=== PATIENT | male | born 1955 | race African-American/Black ===

== ENCOUNTER 2020-07-12 18:56 | Inpatient (IN) | payer MEDICARE, OTHER ==
[~2020-07-12] VITALS: Ht 180.3 cm; Wt 53.5 kg
--- NOTE | 2020-07-12 19:10 | NUR ---
PT BIBPA C/O OF WEAKNESS AND CONTINUED WEIGHTLOSS. PT AAOX1 BREATHING EVENLY AND UNLABORED. PT SKIN WARM, DRY AND INTACT. UPON ASSESSMENT PT HAS GTUBE. PT ATTACHED TO MONITOR AND POX. PT BASLINE O2 92%. GIVEN BLANKET AND CALL LIGHT WITHIN REACH
[2020-07-12] MEDS ORDERED: IV NS 0.9% 1,000 ML BAG IV ONE (20:00)
[2020-07-12 20:07] LABS: BASOPHILS % (AUTO) 0.5 % (0.0-2.0); EOSINOPHILS % (AUTO) 1.8 % (0.0-6.0); HEMATOCRIT 35 % (39-51); HEMOGLOBIN 10.7 g/dL (13.5-17.5); LYMPHOCYTES # (AUTO) 1.1 /CMM (0.8-4.8); LYMPHOCYTES % (AUTO) 25.1 % (20.0-44.0); MEAN CORPUSCULAR HGB CONC 30 g/dl (31.0-36.0); MEAN CORPUSCULAR VOLUME 87 fL (80-96); MONOCYTES # (AUTO) 0.4 /CMM (0.1-1.30); MONOCYTES % (AUTO) 8.2 % (2.0-12.0); NEUTROPHILS # (AUTO) 2.8 /CMM (1.8-8.9); NEUTROPHILS % (AUTO) 64.4 % (43.0-81.0); PLATELET COUNT (AUTO) 230 /CMM (150-450); RED BLOOD CELL COUNT(AUTO) 4.06 MIL/uL (4.5-6.0); WHITE BLOOD COUNT (AUTO) 4.3 K/uL (4.3-11.0)
--- NOTE | 2020-07-12 20:15 | NUR ---
COVID SWAB SENT TO LAB
--- NOTE | 2020-07-12 20:15 | NUR ---
URINE OBTAINED AND SENT TO LAB
[2020-07-12] MEDS ORDERED: LIDOCAINE 2% JEL UROJET 10 ML MM ONE (20:17)
[2020-07-12 20:33] LABS: CARBON DIOXIDE 30 mmol/L (21-32); CHLORIDE 110 mmol/L (98-107); CREATININE 0.8 mg/dL (0.6-1.3); GLUCOSE 130 mg/dL (74-106); POTASSIUM 3.6 mmol/L (3.5-5.1); SODIUM SERUM 149 mmol/L (136-145); UREA NITROGEN, BLOOD 39 mg/dL (7-18)
[2020-07-12 20:38] LABS: ALANINE AMINOTRANSFERASE 42 U/L (12-78); ALBUMIN 2.6 g/dL (3.4-5.0); ALKALINE PHOSPHATASE 110 U/L (46-116); ASPARTATE AMINOTRANSFERASE 31 U/L (15-37); BILIRUBIN,DIRECT 0.1 mg/dL (0.0-0.2); BILIRUBIN,TOTAL 0.2 mg/dL (0.2-1.0); LIPASE 79 U/L (73-393); TOTAL PROTEIN, SERUM 7.4 g/dL (6.4-8.2)
[2020-07-12 20:50] LABS: BILIRUBIN,URINE Negative (NEGATIVE); COLOR,URINE YELLOW (YELLOW); LEUKOCYTE ESTERASE ,URINE Small (NEGATIVE); NITRITE, URINE Positive (NEGATIVE); PROTEIN,URINE Trace mg/dl (NEGATIVE); UGLUCOSE Negative (NEGATIVE)
[2020-07-12 21:01] LABS: BACTERIA,URINE 3+ /HPF (None Seen); RBC,URINE NONE SEEN /HPF (0-2); SQUAMOUS EPITHELIAL CELL,UR Few /HPF (None Seen); WBC,URINE 21-50 /HPF (0-3)
[2020-07-12] MEDS ORDERED: CEFEPIME 1 GM VIAL ONE (21:18)
--- NOTE | 2020-07-12 21:20 | NUR ---
EPIC COUNCILOR PAGED FOR PANEL
[2020-07-12] MEDS ORDERED: CEFEPIME 1 GM in IV D5W 50 ML IV ONE (21:30)
--- NOTE | 2020-07-12 21:36 | NUR ---
covid swab sent to lab
--- NOTE | 2020-07-12 22:05 | NUR ---
M/S 109
--- NOTE | 2020-07-12 22:14 | NUR ---
GAVE REPORT TO KANNAN VAUGHN FOR JENNY
[2020-07-12] MEDS ORDERED: LOSA50TA39 GT (22:20)
[2020-07-12 23:00] VITALS: BP 139/63
[2020-07-12] MEDS ORDERED: ACETAMINOPHEN 325 MG TABLET PO PRN (23:00)
[2020-07-12] MEDS ORDERED: ONDANSETRON HCL/PF 4 MG/2 ML VIAL IVP PRN (23:00)
[2020-07-12] MEDS ORDERED: Z GUARD REMEDY 2 OZ OINT TP PRN (23:00)
[2020-07-12] MEDS ORDERED: MAGNESIUM HYDROXIDE 30 ML UDC PO PRN (23:00)
[2020-07-12] MEDS ORDERED: MAG HYDROX/AL HYDROX/SIMETH 30 ML UDC PO PRN (23:00)
[2020-07-12] MEDS ORDERED: HYDROCODONE/APAP 5/325MG TABLET PO PRN (23:00)
[2020-07-12] MEDS ORDERED: ZOLPIDEM TARTRATE 5 MG TABLET PO PRN (23:00)
--- NOTE | 2020-07-12 23:00 | NUR ---
RN NOTE PT ARRIVED TO THE UNIT WITH LAURO, PT IS A/O X1, ON RA SATING 94%. PT HAS UNLABORED BREATHING, SAFETY MEASURES IN PLACE
[2020-07-12] MEDS: ENOXAPARIN SODIUM 40 MG/0.4 ML DISP.SYRIN SQ SCH (23:41)
[2020-07-12] MEDS: IV D5/0.45 NACL 1,000 ML IV PRN (23:43)
--- NOTE | 2020-07-13 02:10 | NUR ---
0210 SUMMONED BY KANNAN VAUGHN TO ROOM DUE TO PATIENT'S TRIVEDI CATH NOTED WITH BLEEDING AND SCANT URINE OUTPUT. ASSESSED PATIENT AND NOTED TO HAVE DISTENDED BLADDER. BLADDER SCAN DONE AND NOTED WITH 350-500ML OF POST VOID RESIDUAL. DR KOHLI WAS MADE AWARE BY PRIMARY RN WITH ORDER TO INSERT TRIVEDI PROPERLY AND IRRIGATE. ORDER NOTED AND CARRIED OUT. TRIVEDI CATHETER FR 16/10ML INSERTED USING ASEPTIC TECHNIQUE WITH NO RESISTANCE MET. STILL NOTED WITH BLOODY URINE IN SMALL AMOUNT. IRRIGATED ORDERED AND NOTED WITH SOME CLOTS. PATIENT TOLERATED PROCEDURE WELL. WILL CONTINUE TO MONITOR.
[2020-07-13 04:00] VITALS: BP 154/97
--- NOTE | 2020-07-13 04:00 | NUR ---
INFORMED DR KAMILLA TRIVEDI INSERTED PROPERLY AND IRRIGATED, STILL NO URINE OUTPUT NOTED. WAITING FOR HIS CALL BACK.
[2020-07-13 05:52] LABS: BASOPHILS # (AUTO) 0.1 /CMM (0.0-0.2); BASOPHILS % (AUTO) 0.7 % (0.0-2.0); EOSINOPHILS % (AUTO) 0.6 % (0.0-6.0); HEMATOCRIT 37 % (39-51); HEMOGLOBIN 11.4 g/dL (13.5-17.5); LYMPHOCYTES # (AUTO) 1.1 /CMM (0.8-4.8); LYMPHOCYTES % (AUTO) 11.9 % (20.0-44.0); MEAN CORPUSCULAR HGB CONC 31 g/dl (31.0-36.0); MEAN CORPUSCULAR VOLUME 85 fL (80-96); MONOCYTES # (AUTO) 0.4 /CMM (0.1-1.30); NEUTROPHILS # (AUTO) 7.3 /CMM (1.8-8.9); NEUTROPHILS % (AUTO) 82.8 % (43.0-81.0); PLATELET COUNT (AUTO) 278 /CMM (150-450); RED BLOOD CELL COUNT(AUTO) 4.37 MIL/uL (4.5-6.0); WHITE BLOOD COUNT (AUTO) 8.8 K/uL (4.3-11.0)
[2020-07-13 06:09] LABS: CALCIUM, SERUM 10.1 mg/dL (8.5-10.1); CREATININE 0.9 mg/dL (0.6-1.3); PHOSPHORUS 2.8 mg/dL (2.5-4.9); POTASSIUM 3.2 mmol/L (3.5-5.1)
[2020-07-13 06:19] LABS: THYROID STIMULATING HORMONE 5.717 uIU/mL (0.358-3.74)
--- NOTE | 2020-07-13 07:19 | NUR ---
RN NOTE REPORT GIVEN TO ONCOMING SHIFT FOR JENNY.
--- NOTE | 2020-07-13 07:25 | NUR ---
RN OPENING NOTES RECEIVED PT IN BED. A/O X1. ON ROOM AIR SATURATING @100%. NO SOB OR ANY RESPIRATORY DISTRESS NOTED. GT CLAMPED. NPO STATUS. IV ACCESS AT L HAND #20 INTACT AND PATENT. 1/2 NS RUNNING @75 ML/HR INFUSING WELL. SAFETY MEASURES IN PLACE. CALL LIGHT WITHIN REACH. BED LOCKED AND AT LOWEST POSITION WITH SIDE RAILS UP X3. WILL CONTINUE TO MONITOR.
[2020-07-13] MEDS: PANTOPRAZOLE 40 MG TABLET.DR PO SCH (07:30)
[2020-07-13 08:00] VITALS: BP 151/92
[2020-07-13] MEDS ORDERED: CARV3.12 GT (08:06)
[2020-07-13] MEDS ORDERED: BENZ1TAB7 GT (08:06)
[2020-07-13] MEDS ORDERED: MELA5TAB GT (08:06)
[2020-07-13] MEDS ORDERED: LEVO50TA8 GT (08:06)
[2020-07-13] MEDS ORDERED: CLON0.2T GT (08:06)
[2020-07-13] MEDS ORDERED: INSU100V10 SQ (08:06)
[2020-07-13] MEDS ORDERED: MAGN400O6 GT (08:06)
[2020-07-13] MEDS ORDERED: MULT-439 GT (08:06)
[2020-07-13] MEDS ORDERED: ASPI-1169 GT (08:06)
[2020-07-13] MEDS ORDERED: ATOR10TA GT (08:06)
[2020-07-13] MEDS ORDERED: CLOP75TA15 GT (08:06)
[2020-07-13] MEDS ORDERED: VALP250S4 GT (08:06)
[2020-07-13] MEDS ORDERED: OMEP20TA5 GT (08:06)
[2020-07-13] MEDS ORDERED: LEVA15HF4 IH (08:06)
[2020-07-13] MEDS ORDERED: ACET325T53 GT (08:06)
[2020-07-13] MEDS ORDERED: AMLO10TA4 GT (08:06)
[2020-07-13] MEDS ORDERED: CHOL400C8 GT (08:06)
[2020-07-13] MEDS: CEFEPIME 1 GM in IV D5W 50 ML IV SCH ×2 (09:41→20:32)
[2020-07-13] MEDS: POTASSIUM CL. PREMIX PERIPHER. 50 ML IV SCH ×4 (12:21→15:32)
[2020-07-13 16:00] VITALS: BP 132/95
[2020-07-13] MEDS: IV D5/0.45 NACL 1,000 ML IV PRN (17:24)
--- NOTE | 2020-07-13 18:40 | NUR ---
RN CLOSING NOTES NO SIGNIFICANT CHANGES THROUGHOUT SHIFT. VS STABLE. NOT IN DISTRESS. NO PAIN REPORTED AT THIS TIME. SAFETY MEASURES IN PLACE. CALL LIGHT WITHIN REACH. BED LOCKED AND AT LOWEST POSITION WITH SIDE RAILS UP X3. WILL ENDORSE TO NIGHT NURSE FOR JENNY.
--- NOTE | 2020-07-13 19:15 | NUR ---
ASSUMED CARE OF PATIENT. PATIENT IS ALERT IN BED. UNABLE TO DETERMINE ORIENTATION DUE TO PATIENT NON-VERBAL. CURRENTLY ON ROOM AIR AND DOES NOT APPEAR TO BE IN ANY DISTRESS OR DISCOMFORT AT THIS TIME. ACCESS IN LEFT HAND IS PATENT AND INFUSING D5 1/2 NS @ 75 ML/HR. SAFETY MEASURES IN PLACE. BED IN LOW POSITION AND LOCKED [facility] SIDE RAILS UP X3. CALL LIGHT WITHIN REACH. WILL CONTINUE TO MONITOR.
[2020-07-13 20:00] VITALS: BP 128/81
[2020-07-13] MEDS: ENOXAPARIN SODIUM 40 MG/0.4 ML DISP.SYRIN SQ SCH (22:15)
--- NOTE | 2020-07-13 22:16 | NUR ---
UROLOGY PREVIOUSLY AT BEDSIDE. PER MD, TRIVEDI BALLOON WAS NOT FULLY INSERTED SO BALLOON WAS DEFLATED AND TRIVEDI PUSHED IN FURTHER. ABLE TO GET 550 ML OF DK BROWN URINE OUT AFTERWARDS. PATIENT NOTED TO BE PULLING ON CATHETER WHEN RN ARRIVED TO BEDSIDE AND SMALL AMOUNT OF BLEEDING NOTED FROM PENIS. WILL HOLD LOVENOX FOR THE NIGHT.
[2020-07-13] MEDS: LOSARTAN POTASSIUM 50 MG TABLET GT SCH (22:27)
--- NOTE | 2020-07-13 23:26 | NUR ---
COVID RESULT NEGATIVE
--- NOTE | 2020-07-14 00:03 | NUR ---
NOTICED PATIENT PULLING AT CATHETER. PATIENT'S HAND REMOVED FROM CATHETER AND A WASH CLOTH WAS PLACED IN HIS HAND AT THIS TIME. WILL CONTINUE TO MONITOR.
[2020-07-14 04:00] VITALS: BP 139/90
[2020-07-14 06:08] LABS: BASOPHILS % (AUTO) 0.5 % (0.0-2.0); EOSINOPHILS % (AUTO) 0.4 % (0.0-6.0); HEMATOCRIT 33 % (39-51); HEMOGLOBIN 10.3 g/dL (13.5-17.5); LYMPHOCYTES # (AUTO) 0.7 /CMM (0.8-4.8); LYMPHOCYTES % (AUTO) 12.2 % (20.0-44.0); MEAN CORPUSCULAR HGB CONC 31 g/dl (31.0-36.0); MEAN CORPUSCULAR VOLUME 84 fL (80-96); MONOCYTES # (AUTO) 0.4 /CMM (0.1-1.30); MONOCYTES % (AUTO) 5.9 % (2.0-12.0); NEUTROPHILS # (AUTO) 4.9 /CMM (1.8-8.9); PLATELET COUNT (AUTO) 238 /CMM (150-450); RED BLOOD CELL COUNT(AUTO) 3.89 MIL/uL (4.5-6.0)
[2020-07-14 06:17] LABS: CALCIUM, SERUM 9.8 mg/dL (8.5-10.1); CREATININE 1.1 mg/dL (0.6-1.3); PHOSPHORUS 3.3 mg/dL (2.5-4.9); POTASSIUM 3.3 mmol/L (3.5-5.1)
[2020-07-14] MEDS: IV D5/0.45 NACL 1,000 ML IV PRN ×2 (06:45→21:39)
--- NOTE | 2020-07-14 07:08 | NUR ---
No significant changes overnight. Patient not in distress. Small amount of blood noted from penis overnight. Patient no longer pulling catheter with cloth in his hand. Urine now yellow with sediment. Safety measures remain in place. Report given to KANNAN Archer and labs reviewed.
--- NOTE | 2020-07-14 07:25 | NUR ---
RN OPENING NOTES RECEIVED PT IN BED. AWAKE, NON VERBAL. ON ROOM AIR SATURATING @95%. NO SOB OR ANY RESPIRATORY DISTRESS NOTED. GT CLAMPED. NPO STATUS. IV ACCESS AT L HAND #20 INTACT AND PATENT. D5 1/2 NS RUNNING @75 ML/HR INFUSING WELL. TRIVEDI CATH IN PLACE, DRAINING URINE VIA GRAVITY. SAFETY MEASURES IN PLACE. CALL LIGHT WITHIN REACH. BED LOCKED AND AT LOWEST POSITION WITH SIDE RAILS UP X3. WILL CONTINUE TO MONITOR.
[2020-07-14] MEDS: CEFEPIME 1 GM in IV D5W 50 ML IV SCH ×2 (09:03→21:39)
[2020-07-14] MEDS: PANTOPRAZOLE 40 MG TABLET.DR PO SCH (09:03)
[2020-07-14] MEDS: POTASSIUM CL. PREMIX PERIPHER. 50 ML IV SCH ×2 (11:49→12:49)
[2020-07-14 12:00] VITALS: BP 133/89
[2020-07-14] MEDS ORDERED: TWOCAL HN 1,000 ML LIQUID GT PRN (18:00)
--- NOTE | 2020-07-14 19:42 | NUR ---
RN OPENING NOTES RECEIVED PT IN BED. AWAKE, NON VERBAL. ON ROOM AIR TOLERATING WELL. NO SOB OR ANY RESPIRATORY DISTRESS NOTED AT THIS TIME. SATURATING IS 94%. IV SITE L HAND #20 INTACT AND PATENT WITH IVF D5 1/2 NS RUNNING @75 ML/HR INFUSING WELL. PT HAS GTUBE, TWO PILLO @50CC/HR RUNNING. GT AUSCULTATED FOR PLACEMENT, RESIDUAL OF 0 NOTED. PT HAS TRIVEDI CATH IN PLACE, DRAINING URINE VIA GRAVITY. SAFETY MEASURES IN PLACE.HEAD OF BED ELEVATED. SIDE RAILS UP X3, BED IS LOCKED IN LOWEST POSITION WITH BED ALARM ON. WILL CONT TO CLOSELY MONITOR.
[2020-07-14 20:00] VITALS: BP 141/74
[2020-07-14] MEDS: LOSARTAN POTASSIUM 50 MG TABLET GT SCH (21:40)
[2020-07-14] MEDS: ENOXAPARIN SODIUM 40 MG/0.4 ML DISP.SYRIN SQ SCH (23:54)
--- NOTE | 2020-07-15 03:22 | NUR ---
PT IS CURRENTLY RESTING, AT THIS TIME. CLOSELY MONITORING PT HAS HX OF PULLING AT LINES/EQUIPMENT.
[2020-07-15 04:00] VITALS: BP 148/92
--- NOTE | 2020-07-15 05:34 | NUR ---
PT HAD BM X1, SOFT FORMED BROWN
[2020-07-15 06:27] LABS: BASOPHILS % (AUTO) 0.3 % (0.0-2.0); EOSINOPHILS % (AUTO) 0.8 % (0.0-6.0); HEMATOCRIT 29 % (39-51); HEMOGLOBIN 9.1 g/dL (13.5-17.5); LYMPHOCYTES # (AUTO) 0.9 /CMM (0.8-4.8); LYMPHOCYTES % (AUTO) 19.8 % (20.0-44.0); MEAN CORPUSCULAR HGB CONC 32 g/dl (31.0-36.0); MEAN CORPUSCULAR VOLUME 85 fL (80-96); MONOCYTES # (AUTO) 0.4 /CMM (0.1-1.30); MONOCYTES % (AUTO) 8.9 % (2.0-12.0); NEUTROPHILS # (AUTO) 3.3 /CMM (1.8-8.9); NEUTROPHILS % (AUTO) 70.2 % (43.0-81.0); PLATELET COUNT (AUTO) 210 /CMM (150-450); RED BLOOD CELL COUNT(AUTO) 3.39 MIL/uL (4.5-6.0); WHITE BLOOD COUNT (AUTO) 4.7 K/uL (4.3-11.0)
[2020-07-15 06:47] LABS: CALCIUM, SERUM 9.3 mg/dL (8.5-10.1); CREATININE 0.9 mg/dL (0.6-1.3); POTASSIUM 3.5 mmol/L (3.5-5.1)
--- NOTE | 2020-07-15 06:59 | NUR ---
RN CLOSING NOTES PT REMAINS IN BED, DID NOT SLEEP WELL THROUGHOUT NIGHT. ONLY INTERMITTENTLY. NO SIGNIFICANT CHANGES IN PT CONDITION. STILL ON ROOM AIR, TOLERATING WELL NO DISTRESS NOTED. BED BATH DONE, NO S/S OF PAIN. NEEDS ATTENDED. STILL REMAINS WITH GT FEEDING AND IVF. NO S/S OF INFILTRATION NOTED. PT OCCASIONALLY NOTED TO BE RESTLESS AND FIDGETING WITH DIAPER/CHUCKS. EDUCATED PT ON IMPORTANCE OF TRIVEDI CATH AND INSTRUCTED TO LEAVE IT ALONE. PT DENIES PAIN WHEN ASKED REGARDING TRIVEDI SPECIFICALLY. PT AFEBRILE. SAFETY MEASURES IN PLACE. HOB ELEVATED. BED LOCKED IN LOWEST POSITION WITH BED ALARM ON. CALL LIGHT WITHIN REACH. SIDE RAILS X2. WILL ENDORSE TO AM NURSE FOR CONTINUATION OF CARE.
[2020-07-15 08:00] VITALS: BP 148/83
[2020-07-15] MEDS: PANTOPRAZOLE 40 MG TABLET.DR PO SCH (08:02)
[2020-07-15] MEDS: CEFEPIME 1 GM in IV D5W 50 ML IV SCH ×2 (08:02→21:38)
--- NOTE | 2020-07-15 09:00 | NUR ---
RN NOTE RECEIVED PT IN BED, AWAKE, NON VERBAL. ROOM AIR WITH NO SOB NOR RESPIRATORY DISTRESS NOTED. AT THIS TIME. 20G TO LEFT HAND INTACT AND PATENT WITH D5 1/2NS @ 75ML/HR. GTUBE INTACT AND PATENT WITH NO RESIDUAL, PLACEMENT CHECKED, 2CAL @ 50ML/HR AND TOLERAING WELL. TRIVEDI CATH INTACT TO BEDSIDE DRAINAGE WITH CLEAR YELLOW URINE NOTED. ENDORSING NURSE INITIATED SOFT WRIST RESTRAINTS R/T PATIENT PULLING LINES. SAFETY MEASURES IN PLACE, HOB ELEVATED, SIDE RAILS UP X3, BED LOCKED IN LOWEST POSITION AND BED ALARM ON. WILL CONT TO MONITOR.
--- NOTE | 2020-07-15 09:59 | NUR ---
RN NOTE [employer] ARCHITECT REACHED OUT TO CONSERVATORS LISTED IN CHART [phone] & [phone] WITH CONTRAST. NO ANSWER-VOICEMAIL LEFT TO RETURN CALL AT [facility]LIEST.
--- NOTE | 2020-07-15 10:15 | NUR ---
RN NOTE 1007 ABLE TO OBTAIN CONSENT FROM DANIELLA SCHOFIELDAZ CONSERVATOR. CONSENT PLACE ON CHART.
[2020-07-15] MEDS ORDERED: IV NS 0.9% 250 ML IV ONE (12:12)
[2020-07-15] MEDS ORDERED: IOHEXOL-300 100 ML VIAL IV ONE (12:12)
[2020-07-15] MEDS ORDERED: CT SWABBABLE VALVE TRANS SET 1 EA INFUS.SET MC ONE (12:12)
--- NOTE | 2020-07-15 12:51 | NUR ---
RN NOTE PATTIE JACKSON NP MADE AWARE OF CT UNABLE TO BE DONE R/T PATIENT FIDGETY AND PULLING AT LINES. ORDERS OBTAINED FOR ATIVAN PRN AND RESTRAINTS. WILL NOTIFY CT.
[2020-07-15] MEDS ORDERED: LORAZEPAM INJ 2 MG/ML VIAL IV PRN (13:00)
[2020-07-15] MEDS: IV D5/0.45 NACL 1,000 ML IV PRN (14:31)
[2020-07-15 16:00] VITALS: BP 143/71
[2020-07-15 16:27] LABS: BILIRUBIN,URINE NEGATIVE (NEGATIVE); COLOR,URINE YELLOW (YELLOW); LEUKOCYTE ESTERASE ,URINE NEGATIVE (NEGATIVE); NITRITE, URINE NEGATIVE (NEGATIVE); PROTEIN,URINE NEGATIVE (NEGATIVE); UGLUCOSE NEGATIVE (NEGATIVE)
[2020-07-15 16:43] LABS: BACTERIA,URINE RARE /HPF (None Seen); RBC,URINE 21-50 /HPF (0-2); SQUAMOUS EPITHELIAL CELL,UR 0-2 /HPF (None Seen); WBC,URINE 0-2 /HPF (0-3)
--- NOTE | 2020-07-15 18:00 | NUR ---
RN CLOSING NOTE NO SIGNIFICANT CHANGE IN PATIENT CONDITION. REMAINS AWAKE AND NONVERBAL, RA NO DISTRESS. 2CAL RESTARTED @ THIS TIME TO INTACT/PATENT GTUBE-TOLERATES WELL. TRIVEDI CATH REMAINS TO BSD WITH CLEAR YELLOW URINE(SPECIMEN COLLECTED AND PLACED IN FRIDGE) 650CC OUTPUT. RESTRAINTS IN PLACE FOR PATIENT SAFETY AND TREATMENT. SAFETY MEASURES ONGOING, CALL LIGHT WITHIN REACH, FREQUENT CHECKS.
--- NOTE | 2020-07-15 19:05 | NUR ---
MS RN: CONTINUITY OF CARE Patient in bed, eyes opens, awake but non verbal. Appears restless, kicking his legs. Anthony soft wrist restraints in place, released and reapplied, no skin injury. Urinary platt cath to gravity with urine clear and yellow. On GT feeding at 50 ml/hr. Covid 19 rapid and PCR test resulted negative 07/12/20. Fall precaution maintained.
[2020-07-15 20:00] VITALS: BP 127/64
[2020-07-15] MEDS: LOSARTAN POTASSIUM 50 MG TABLET GT SCH (21:34)
[2020-07-15] MEDS: ENOXAPARIN SODIUM 40 MG/0.4 ML DISP.SYRIN SQ SCH (22:11)
--- NOTE | 2020-07-15 22:11 | NUR ---
S RN: ANTICOAGULANT H/H 9.06/09 Platelet 210 No bleeding. Lovenox injection given, co-signed by Ladi/RN.
[2020-07-16 04:48] VITALS: BP 169/99
[2020-07-16] MEDS: IV D5/0.45 NACL 1,000 ML IV PRN (06:02)
[2020-07-16 06:10] VITALS: BP 156/91
--- NOTE | 2020-07-16 06:38 | NUR ---
MS RN: END OF SHIFT REPORT Stable oxygenation on room air. On IV Maxipime, afebrile. IVF infusing. Remains confused, trying to pull out tubing, cont on lamar soft wrist restraints, CSM intact, no skin injury. Urine cx pending. Fall precaution maintained. Will endorse to oncoming RN.
[2020-07-16 06:49] LABS: BASOPHILS % (AUTO) 0.3 % (0.0-2.0); EOSINOPHILS % (AUTO) 1.3 % (0.0-6.0); HEMATOCRIT 29 % (39-51); LYMPHOCYTES # (AUTO) 0.7 /CMM (0.8-4.8); LYMPHOCYTES % (AUTO) 16.9 % (20.0-44.0); MEAN CORPUSCULAR HGB CONC 32 g/dl (31.0-36.0); MEAN CORPUSCULAR VOLUME 85 fL (80-96); MONOCYTES # (AUTO) 0.4 /CMM (0.1-1.30); NEUTROPHILS # (AUTO) 3.2 /CMM (1.8-8.9); NEUTROPHILS % (AUTO) 71.5 % (43.0-81.0); PLATELET COUNT (AUTO) 221 /CMM (150-450); RED BLOOD CELL COUNT(AUTO) 3.38 MIL/uL (4.5-6.0); WHITE BLOOD COUNT (AUTO) 4.4 K/uL (4.3-11.0)
--- NOTE | 2020-07-16 07:22 | NUR ---
ms rn note patient in bed, nonverbal with confusion and trying to remove all lines, on soft restrain as ordered , , with Olguin cath to gravity with yellow color urine , on g tube feeding as ordered keep hob elevated at all time , on ivf as ordered lt hand hl intact , bed in lowest and locked position ,will cont to monitor closely
[2020-07-16 08:00] VITALS: BP 144/86
[2020-07-16] MEDS: PANTOPRAZOLE 40 MG TABLET.DR PO SCH (08:31)
[2020-07-16] MEDS: CEFEPIME 1 GM in IV D5W 50 ML IV SCH (08:31)
[2020-07-16 08:40] LABS: CALCIUM, SERUM 9.3 mg/dL (8.5-10.1); CREATININE 0.8 mg/dL (0.6-1.3); POTASSIUM 3.4 mmol/L (3.5-5.1)
--- NOTE | 2020-07-16 10:00 | NUR ---
MS RN NOTE ALL NEEDS ATTENDED ,TOLERATED TUBE FEEDING WELL, NO RESIDUAL NOTED PER JAMIE BRUNNER DIET COUNSELOR ,OK TO DISCHARGE TO SNF WILL F\U,, OK TO ORDER MID LINE FOR CONT ATB, ALSO NEW HL ON RT FA REGAN 22 INSERTED WITH GOOD BLOOD RETURN
[2020-07-16] MEDS ORDERED: POTASSIUM CHLORIDE 20 MEQ POWDER PACKET GT SCH (11:30)
--- NOTE | 2020-07-16 11:41 | NUR ---
MS BRUNNER NOTE CALLED TO SNF REPORT GIVEN TO OSCAR Addendum: 07/16/20 at 1143 by ISABEL BHATIA RN CALLED [facility] LEFT A MESSAGE THAT PATIENT WILL BE DISCHARGE TO SNF
[2020-07-16] MEDS ORDERED: AZITHROMYCIN 500 MG in IV D5W 250 ML IV SCH (12:00)
[2020-07-16] MEDS ORDERED: VANCOMYCIN 1 GM in IV D5W 250ml IV SCH (12:00)
--- NOTE | 2020-07-16 13:42 | NUR ---
rn note mid line mesha 18 on rt upper arm placed as ordered Addendum: 07/16/20 at 1410 by ISABEL BHATIA RN seen by dr ellison neurologist, updated patient condition ok to transfer to [facility] with atb iv
[2020-07-16 15:33] VITALS: BP 127/78
--- NOTE | 2020-07-16 15:34 | NUR ---
MS RN NOTE AMBULANCE ARRIVED ,REPORT GIVEN ,OK TO KEEP MID LINE AND RT FA HL INTACT FOR SNF FOR FURTHER ADMINISTRATING ATB IV , BELONGING TAKEN ,ALL PAPER WORK GIVEN TO AMBULANCE PERSONAL, TAKEN TO SNF WITH STABLE CONDITION
== END 2020-07-16 15:35 | DRG 177 ==
LOC: ER 19:07 → MEDSG1 22:10
PROVIDERS: ATTEND Nurse Practitioner Family
PROC: 05H533Z Insertion of Infusion Device into Right Subclavian Vein, Percutaneous Approach (ICD-10-PCS; principal; 2020-07-16)
PROC: B546ZZA Ultrasonography of Right Subclavian Vein, Guidance (ICD-10-PCS; 2020-07-16)
DX: J15.6 Pneumonia due to other Gram-negative bacteria (principal); N17.0 Acute kidney failure with tubular necrosis; N39.0 Urinary tract infection, site not specified; I69.351 Hemiplegia and hemiparesis following cerebral infarction affecting right dominant side; Z68.1 Body mass index [BMI] 19.9 or less, adult; E44.0 Moderate protein-calorie malnutrition; J44.0 Chronic obstructive pulmonary disease with (acute) lower respiratory infection; J98.11 Atelectasis; E87.0 Hyperosmolality and hypernatremia; R62.7 Adult failure to thrive; J44.9 Chronic obstructive pulmonary disease, unspecified; I11.0 Hypertensive heart disease with heart failure; I50.9 Heart failure, unspecified; E11.9 Type 2 diabetes mellitus without complications; E78.5 Hyperlipidemia, unspecified; E86.1 Hypovolemia; F20.9 Schizophrenia, unspecified; Z20.822 Contact with and (suspected) exposure to COVID-19; R13.10 Dysphagia, unspecified; Z74.01 Bed confinement status; Z93.1 Gastrostomy status; R31.0 Gross hematuria; G40.909 Epilepsy, unspecified, not intractable, without status epilepticus; D64.9 Anemia, unspecified; E88.09 Other disorders of plasma-protein metabolism, not elsewhere classified; F03.90 Unspecified dementia, unspecified severity, without behavioral disturbance, psychotic disturbance, mood disturbance, and anxiety; G20 Parkinson's disease; F02.80 Dementia in other diseases classified elsewhere, unspecified severity, without behavioral disturbance, psychotic disturbance, mood disturbance, and anxiety; R31.9 Hematuria, unspecified; E86.0 Dehydration; D50.9 Iron deficiency anemia, unspecified
CPT/HCPCS: 36410; 36415; 71045-TC; 71260-TC; 80048-TC; 80061-TC; 80076-TC; 81001; 83690-TC; 83735-TC; 84100-TC; 84443-TC; 84484-TC; 85025-TC; 87081-TC; 87086-TC; C9803; G0378; J0456; J0692; J1650; J2060; J3370; J3480; J3490; J7030; J7050; J7060; Q9967; U0003

== ENCOUNTER 2020-09-27 08:13 | Inpatient (IN) | payer MEDICARE, OTHER ==
[~2020-09-27] VITALS: Ht 180.3 cm; Wt 56.7 kg
[~2020-09-27 08:13] MED LIST: ACET325T53 GT; AMLO10TA4 GT; ASPI-1169 GT; ATOR10TA GT; BENZ1TAB7 GT; CARV3.12 GT; CHOL400C8 GT; CLON0.2T GT; CLOP75TA15 GT; INSU100V10 SQ; LEVA15HF4 IH; LEVO50TA8 GT; LOSA50TA39 GT; MAGN400O6 GT; MELA5TAB GT; MULT-439 GT; OMEP20TA5 GT; VALP250S4 GT
--- NOTE | 2020-09-27 08:30 | NUR ---
bib pa frm long term, pt pulling off his g tube. Patient a/ox1, breathing even and unlabored, no sob noted. Placed into the suction plate carrier cleaner.
[2020-09-27] MEDS ORDERED: NUT.237L25 GT (08:45)
[2020-09-27] MEDS ORDERED: MORP20SO GT (08:45)
[2020-09-27] MEDS ORDERED: IPRA0.2S49 IH (08:45)
[2020-09-27] MEDS ORDERED: ONDA4TAB11 GT (08:45)
[2020-09-27] MEDS ORDERED: ATRO3.5O3 MM (08:45)
[2020-09-27] MEDS ORDERED: BISA10SU11 RC (08:45)
--- NOTE | 2020-09-27 08:46 | NUR ---
iv line established, blood drawn and sent to lab.
[2020-09-27 08:49] LABS: BASOPHILS % (AUTO) 0.5 % (0.0-2.0); EOSINOPHILS % (AUTO) 2.2 % (0.0-6.0); HEMATOCRIT 31 % (39-51); HEMOGLOBIN 9.3 g/dL (13.5-17.5); LYMPHOCYTES % (AUTO) 15.6 % (20.0-44.0); MEAN CORPUSCULAR HGB CONC 30 g/dl (31.0-36.0); MEAN CORPUSCULAR VOLUME 83 fL (80-96); MONOCYTES # (AUTO) 0.3 /CMM (0.1-1.30); MONOCYTES % (AUTO) 4.6 % (2.0-12.0); NEUTROPHILS # (AUTO) 5.1 /CMM (1.8-8.9); NEUTROPHILS % (AUTO) 77.1 % (43.0-81.0); PLATELET COUNT (AUTO) 210 /CMM (150-450); RED BLOOD CELL COUNT(AUTO) 3.76 MIL/uL (4.5-6.0); WHITE BLOOD COUNT (AUTO) 6.6 K/uL (4.3-11.0)
--- NOTE | 2020-09-27 08:55 | NUR ---
covid swab done and sent to the lab
[2020-09-27] MEDS ORDERED: LIDOCAINE HCL/MPF 1% 30 ML VIAL IJ ONE (09:10)
[2020-09-27 09:14] LABS: CALCIUM, SERUM 9.7 mg/dL (8.5-10.1); CREATININE 0.9 mg/dL (0.6-1.3)
[2020-09-27 09:23] LABS: POTASSIUM 3.7 mmol/L (3.5-5.1)
[2020-09-27] MEDS ORDERED: DIATR MEGLU/DIATRIZOATE SODIUM 30 ML BOTTLE (GASTROGRAPHIN) ONE (09:24)
--- NOTE | 2020-09-27 09:27 | NUR ---
dr. castañeda inserted a G-TUBE FR 14, DERMATOLOGY PROCEDURAL PHYSICIAN AT BEDSIDE FOR KUB.
--- NOTE | 2020-09-27 09:52 | NUR ---
CALLED [facility] [phone] PT HAS NOT BEEN VACCINATED.
--- NOTE | 2020-09-27 09:57 | NUR ---
CALLED NURSING SUP FOR BED. NO BED AVAILABLE AT THIS TIME.
[2020-09-27] MEDS ORDERED: IPRATROPIUM NEB FS 0.5 MG/2.5 ML AMPUL.NEB IH PRN (10:00)
[2020-09-27] MEDS ORDERED: Z GUARD REMEDY 2 OZ OINT TP PRN (10:00)
[2020-09-27] MEDS ORDERED: MAGNESIUM HYDROXIDE 30 ML UDC GT PRN (10:00)
[2020-09-27] MEDS ORDERED: MAG HYDROX/AL HYDROX/SIMETH 30 ML UDC PO PRN (10:00)
[2020-09-27] MEDS ORDERED: ACETAMINOPHEN 325 MG TABLET PO PRN (10:00)
[2020-09-27] MEDS ORDERED: HYDROCODONE/APAP 5/325MG TABLET PO PRN (10:00)
[2020-09-27] MEDS ORDERED: ONDANSETRON 4 MG TAB.RAPDIS GT PRN (10:00)
[2020-09-27] MEDS ORDERED: MAGNESIUM HYDROXIDE 30 ML UDC PO PRN (10:00)
[2020-09-27] MEDS ORDERED: ONDANSETRON HCL/PF 4 MG/2 ML VIAL IVP PRN (10:00)
[2020-09-27] MEDS ORDERED: BISACODYL SUPP (10 MG) 10 MG/SUPP.RECT SUPP.RECT RC PRN (10:00)
[2020-09-27] MEDS ORDERED: DEXTROSE 50%-WATER 50 ML DISP.SYRIN IV PRN (10:00)
--- NOTE | 2020-09-27 11:14 | NUR ---
bed assigned = 112
--- NOTE | 2020-09-27 11:22 | NUR ---
REPORT GIVEN TO BIRD BRUNNER FOR JENNY
--- NOTE | 2020-09-27 11:34 | NUR ---
PATIENT TRANSFERRED TO ROOM 112 IN STABLE CONDITION. NEEDS ATTENDED. GTUBE INTACT.
--- NOTE | 2020-09-27 11:45 | NUR ---
RN NOTE RECEIVED PATIENT FROM KANNAN LACEY. PATIENT IS IN STABLE CONDITION WITH BILATERAL MITTENS APPLIED. WILL CONTINUE TO MONITOR.
[2020-09-27] MEDS ORDERED: ALBUTEROL FS 2.5 MG/3 ML VIAL.NEB IH PRN (12:00)
[2020-09-27] MEDS ORDERED: CLONIDINE HCL 0.1 MG TABLET GT PRN (12:00)
[2020-09-27] MEDS: BLOOD SUGAR DIAGNOSTIC 1 EACH STRIP VI SCH ×3 (12:10→21:34)
[2020-09-27] MEDS ORDERED: ATROPINE SULFATE OPHTH SOLN 15 ML BOTTLE SL PRN (13:00)
[2020-09-27 16:00] VITALS: BP 128/66
[2020-09-27] MEDS: IV 1/2NS 1000 ML 1,000 ML IV PRN (16:26)
[2020-09-27] MEDS: TWOCAL HN 1,000 ML LIQUID GT SCH (17:38)
--- NOTE | 2020-09-27 18:48 | NUR ---
RN CLOSING NOTE PATIENT IS CURRENTLY IN BED WITH HOB AT SEMI FOWLERS POSITION. PATIENT IS ON ROOM AIR WITH NO SIGNS OF LABORED BREATHING. PATIENT IS AOX0. BILATERAL MITTENS ARE APPLIED. GTUBE IS IN PLACE. RAC #18 IS PATENT AND INTACT. BED IS LOCKED IN THE LOWEST POSITION, 3 GUARD RAILS RAISED, CALL HUBER WITHIN REACH, AND ALL HOSPITAL SAFETY PRECAUTIONS ARE BEING FOLLOWED. ALL DUE MEDS GIVEN AND PATIENT REMAINED STABLE THROUGHOUT SHIFT. WILL ENDORSE TO [employer] TUTOR RN FOR JENNY.
--- NOTE | 2020-09-27 19:35 | NUR ---
MS RN OPENING NOTES: RECEIVED PATIENT IN BED, AWAKE, NON-VERBAL. NO S/S OF DISTRES NOTED. HEAD OF BED ELEVATED AT 35 DEGREES AT ALL TIMES. WITH GT FEEDING RUNNING . WITH BILATERAL MITTENS RESTRAINTS ON. BED IN LOWEST AND LOCKED POSITION. BED ALARM ON.
[2020-09-27 20:00] VITALS: BP 128/80
[2020-09-27] MEDS: ENOXAPARIN SODIUM 40 MG/0.4 ML DISP.SYRIN SQ SCH (21:29)
[2020-09-27] MEDS: ATORVASTATIN 10 MG TABLET GT SCH (21:30)
[2020-09-27] MEDS: *INSULIN REGULAR(HUMULIN R)HUM 100 UNIT/ML VIAL SQ PRN (21:33)
[2020-09-27] MEDS ORDERED: Medication Not On Formulary EA (Melatonin 10 MG) GT SCH (22:00)
[2020-09-28] MEDS: IV 1/2NS 1000 ML 1,000 ML IV PRN ×2 (05:03→16:28)
[2020-09-28 06:36] LABS: BASOPHILS % (AUTO) 0.2 % (0.0-2.0); EOSINOPHILS % (AUTO) 0.9 % (0.0-6.0); HEMATOCRIT 28 % (39-51); HEMOGLOBIN 8.4 g/dL (13.5-17.5); LYMPHOCYTES % (AUTO) 10.9 % (20.0-44.0); MEAN CORPUSCULAR HGB CONC 30 g/dl (31.0-36.0); MEAN CORPUSCULAR VOLUME 85 fL (80-96); MONOCYTES # (AUTO) 0.4 /CMM (0.1-1.30); MONOCYTES % (AUTO) 4.8 % (2.0-12.0); NEUTROPHILS # (AUTO) 7.4 /CMM (1.8-8.9); NEUTROPHILS % (AUTO) 83.2 % (43.0-81.0); PLATELET COUNT (AUTO) 202 /CMM (150-450); RED BLOOD CELL COUNT(AUTO) 3.33 MIL/uL (4.5-6.0); WHITE BLOOD COUNT (AUTO) 8.8 K/uL (4.3-11.0)
[2020-09-28 06:52] LABS: CALCIUM, SERUM 9.5 mg/dL (8.5-10.1); MAGNESIUM 2.4 mg/dL (1.8-2.4); PHOSPHORUS 2.8 mg/dL (2.5-4.9); POTASSIUM 3.6 mmol/L (3.5-5.1)
--- NOTE | 2020-09-28 07:35 | NUR ---
MS/RN NOTES SODIUM 161 DR. EARLY WAS AWARE NO NEW ORDER AT THIS TIME.
--- NOTE | 2020-09-28 07:42 | NUR ---
MS/RN OPENING NOTES RECEIVED PATIENT ON BED AWAKE, NONVERBAL. PATIENT IN ON ROOM AIR SATURATING WELL. PATIENT IN NO APPARENT RESPIRATORY DISTRESS NOTED. NO SIGN AND SYMPTOM OF PAIN NOTED AT THIS TIME. WILL CONTINUE TO MONITOR.
[2020-09-28] MEDS: INSULIN REGULAR, HUMAN 100 UNIT/ML 3 ML VIAL SQ PRN ×2 (07:53→17:26)
[2020-09-28] MEDS: BLOOD SUGAR DIAGNOSTIC 1 EACH STRIP VI SCH ×4 (07:54→21:23)
[2020-09-28] MEDS: ASPIRIN 81 MG TAB.CHEW GT SCH (08:12)
[2020-09-28] MEDS: MULTIVIT W/MINERALS 1 TAB TABLET GT SCH (08:12)
[2020-09-28] MEDS: AMLODIPINE BESYLATE 10 MG TABLET GT SCH (08:13)
[2020-09-28] MEDS: LEVOTHYROXINE SODIUM 25 MCG TABLET GT SCH (08:14)
[2020-09-28] MEDS: VALPROIC ACID 250 MG/5 ML UDC GT SCH (08:14)
[2020-09-28] MEDS: PANTOPRAZOLE 40 MG/PACK PACK GT SCH (08:14)
--- NOTE | 2020-09-28 08:15 | NUR ---
MS/RN NOTES BP 123/57 NORVASC 10MG 1 TAB VIA GTUBE WAS NOT ADMINISTERED. WILL CONTINUE TO MONITOR.
--- NOTE | 2020-09-28 08:54 | NUR ---
MS/RN NOTES PATIENT GTUBE WAS CHECKED WITH GARGLE SOUND HEAR DURING AUSCULTATION, 0 RESIDUAL PATENT AND INTACT.
--- NOTE | 2020-09-28 10:40 | NUR ---
MS/RN NOTES INSERTED TRIVEDI CATHETER AND ASEPTIC TECHNIQUE WAS DONE.
[2020-09-28 16:00] VITALS: BP 153/83
--- NOTE | 2020-09-28 16:20 | NUR ---
MS/RN NOTES MRSA NARES POSITIVE DR. EARLY IS AWARE AND ORDER BACTROBAN OINTMENT Q 12 HOUR. NOTED AND CARRIED OUT.
[2020-09-28] MEDS: TWOCAL HN 1,000 ML LIQUID GT SCH (17:29)
--- NOTE | 2020-09-28 18:55 | NUR ---
MS/RN CLOSING NOTES PATIENT ON BED. PATIENT IS ON ROOM AIR SATURATION 97%. PATIENT IN NO APPARENT RESPIRATORY DISTRESS NOTED. NO SIGN AND SYMPTOM OF PAIN NOTED AT THIS TIME. IV ACCESS AT RIGHT AC # 20G WITH IV FLUID OF 1/2NS 1L AT 75 ML/HR ON AND INFUSING WELL. SEEN AND EXAMINED BY MD WITH ORDERS MADE AND CARRIED OUT. ALL DUE MEDICATIONS WAS GIVEN. ALL NEEDS WAS ATTENDED. WILL ENDORSED TO NIGHT FOR JENNY
[2020-09-28] MEDS: MUPIROCIN OINT 2% 22 GM TUBE NS SCH (21:01)
[2020-09-28] MEDS: ENOXAPARIN SODIUM 40 MG/0.4 ML DISP.SYRIN SQ SCH (21:02)
[2020-09-28] MEDS: ATORVASTATIN 10 MG TABLET GT SCH (21:03)
[2020-09-28] MEDS: *INSULIN REGULAR(HUMULIN R)HUM 100 UNIT/ML VIAL SQ PRN (21:22)
[2020-09-29 04:00] VITALS: BP 176/107
[2020-09-29] MEDS: IV 1/2NS 1000 ML 1,000 ML IV PRN (05:53)
[2020-09-29 06:32] LABS: THYROID STIMULATING HORMONE 3.103 uIU/mL (0.358-3.74); URIC ACID 4.3 mg/dL (2.6-7.2)
[2020-09-29 06:37] LABS: CALCIUM, SERUM 9.3 mg/dL (8.5-10.1); CREATININE 0.8 mg/dL (0.6-1.3); MAGNESIUM 2.1 mg/dL (1.8-2.4); PHOSPHORUS 2.6 mg/dL (2.5-4.9); POTASSIUM 3.6 mmol/L (3.5-5.1)
--- NOTE | 2020-09-29 07:02 | NUR ---
RN notes Alert with confusion, non verbal. Noted with eye contact. On 2lpm via nasal cannula, well tolerated. Noted with elevated BP 176/107 and HR of 106. Clonidine .2mg given with No significant change of condition. No physical manifestation of pain or discomfort. Kept clean and dry. Will endorse to next shift for continuity of care.
--- NOTE | 2020-09-29 07:30 | NUR ---
MS RN NOTES RECEIVED PATIENT IN BED, AWAKE, NON-VERBAL. BLANK STARE. NO S/S OF DISTRESS NOTED. RAC G20 WITH 1/2 NS AT 75 ML/HR INFUSING,SITE CLEAR. GT CHECKED FOR PLACEMENT. GTF ONGOING TWO PILLO HN AT 45 ML/HR O RESIDUAL.HEAD OF BED ELEVATED AT 35 DEGREES AT ALL TIMES. WITH GT FEEDING RUNNING . WITH BILATERAL MITTENS RESTRAINTS ON. BED IN LOWEST AND LOCKED POSITION. BED ALARM ON.WILL CONT TO MONITOR. Addendum: 09/29/20 at 1951 by MONO PICKERING RN ADDENDUM: WITH TRIVEDI CATH DRAINING TO GRAVITY. CLEAR URINE OUTPUT.
[2020-09-29] MEDS: LEVOTHYROXINE SODIUM 25 MCG TABLET GT SCH (07:57)
[2020-09-29] MEDS: BLOOD SUGAR DIAGNOSTIC 1 EACH STRIP VI SCH ×2 (07:58→12:31)
[2020-09-29 08:00] VITALS: BP 129/74
[2020-09-29] MEDS: ASPIRIN 81 MG TAB.CHEW GT SCH (08:23)
[2020-09-29] MEDS: VALPROIC ACID 250 MG/5 ML UDC GT SCH (08:26)
[2020-09-29] MEDS: MULTIVIT W/MINERALS 1 TAB TABLET GT SCH (08:26)
[2020-09-29] MEDS: PANTOPRAZOLE 40 MG/PACK PACK GT SCH (08:26)
[2020-09-29 08:27] VITALS: BP 129/74
[2020-09-29] MEDS: AMLODIPINE BESYLATE 10 MG TABLET GT SCH (08:27)
[2020-09-29] MEDS: MUPIROCIN OINT 2% 22 GM TUBE NS SCH (08:28)
[2020-09-29] MEDS: INSULIN REGULAR, HUMAN 100 UNIT/ML 3 ML VIAL SQ PRN (10:30)
--- NOTE | 2020-09-29 17:40 | NUR ---
RN NOTES PATIENT DISCHARGED TO [facility] PER MD IN STABLE CONDITION. PROVIDED DC INSTRUCTIONS, HEALTH TEACHINGS AND MED RECON LIST. REMOVED RIGHT AC IV ACCESS, CATH TIP COMPLETE, APPLIED PRESSURE, NO BLEEDING, DRESSING IN PLACE. GT FLUSHED AND CLAMPED. NO BELONGINGS. PATIENT TO FOLLOW UP WITH PCP IN 1- WEEK OR PER FACILITY PROTOCOL. ALL PAPERWORKS SIGNED BY 2 RN. PATIENT PICKED UP BY 3 AMBULANCE CREW AND TRANSPORTATION. REPORT GIVEN TO [facility] FACILITY STAFF EARLIER.
--- NOTE | 2020-09-29 20:05 | NUR ---
ADDENDUM: TRIVEDI C[facility]
== END 2020-09-29 17:40 | DRG 393 ==
LOC: ER 08:18 → MEDSG1 11:17
PROVIDERS: ADMIT Internal Medicine; ATTEND Internal Medicine
DX: K94.23 Gastrostomy malfunction (principal); N17.0 Acute kidney failure with tubular necrosis; G93.40 Encephalopathy, unspecified; I69.351 Hemiplegia and hemiparesis following cerebral infarction affecting right dominant side; E44.0 Moderate protein-calorie malnutrition; Z68.1 Body mass index [BMI] 19.9 or less, adult; E87.0 Hyperosmolality and hypernatremia; E11.9 Type 2 diabetes mellitus without complications; E78.5 Hyperlipidemia, unspecified; G20 Parkinson's disease; G40.909 Epilepsy, unspecified, not intractable, without status epilepticus; J44.9 Chronic obstructive pulmonary disease, unspecified; Z20.822 Contact with and (suspected) exposure to COVID-19; F02.80 Dementia in other diseases classified elsewhere, unspecified severity, without behavioral disturbance, psychotic disturbance, mood disturbance, and anxiety; R62.7 Adult failure to thrive; I11.0 Hypertensive heart disease with heart failure; F20.9 Schizophrenia, unspecified; M62.562 Muscle wasting and atrophy, not elsewhere classified, left lower leg; M62.561 Muscle wasting and atrophy, not elsewhere classified, right lower leg; R13.10 Dysphagia, unspecified; I50.9 Heart failure, unspecified; Z74.01 Bed confinement status; Z79.51 Long term (current) use of inhaled steroids; Z79.82 Long term (current) use of aspirin; Z79.4 Long term (current) use of insulin; Z79.02 Long term (current) use of antithrombotics/antiplatelets; Z79.899 Other long term (current) drug therapy; E03.9 Hypothyroidism, unspecified; D64.9 Anemia, unspecified; Y83.3 Surgical operation with formation of external stoma as the cause of abnormal reaction of the patient, or of later complication, without mention of misadventure at the time of the procedure; Y82.8 Other medical devices associated with adverse incidents; Y92.129 Unspecified place in nursing home as the place of occurrence of the external cause
CPT/HCPCS: 36415; 74018; 80048-TC; 82962-TC; 83735-TC; 84100-TC; 84300-TC; 84443-TC; 84550-TC; 85025-TC; 85730-TC; 87081-TC; G0378; J1650; J1815; J3490; Q9963; U0003